=== PATIENT | male | born 1975 | race Two or more races ===

== ENCOUNTER 2023-09-16 09:51 | Emergency (ER) | payer BC ==
[~2023-09-16] VITALS: Ht 182.9 cm; Wt 47.6 kg
[2023-09-16] MEDS ORDERED: GRALISE600 MG (09:56)
[2023-09-16] MEDS ORDERED: LISINOPRIL5 MG (09:56)
[2023-09-16] MEDS ORDERED: PRILOSEC OTC20 MG (09:56)
[2023-09-16] MEDS ORDERED: FAMOtidine 10 MG/ML (4ML VIAL) IV STA (10:36)
[2023-09-16] MEDS ORDERED: RINGERS SOLUTION,LACTATED 1,000 ML IV STA (10:37)
[2023-09-16 11:12] LABS: HEMATOCRIT 40.1 % (39.0-48.0); HEMOGLOBIN 14.1 g/dL (13-16.00); MEAN CELL VOLUME 88.4 fL (80.0-100.00); MEAN CORPUSCULAR HEMOGLOBIN 31.1 pg (27.00-32.0); MEAN CORPUSCULAR HGB CONC 35.2 g/dl (32.0-36.0); PLATELET COUNT 162 K/uL (150-450); RED BLOOD COUNT 4.54 M/uL (4.00-6.00); RED CELL DISTRIBUTION WIDTH 13.1 % (11.5-14.5)
[2023-09-16 11:41] LABS: ALBUMIN 3.2 gm/dL (3.4-5.0); BILIRUBIN TOTAL 0.37 mg/dL (0.3-1.2); BILIRUBIN,CONJUGATED 0.12 mg/dL (0.0-0.2); BILIRUBIN,UNCONJUGATED 0.25 mg/dL (0.0-0.6); CALCIUM 8.7 mg/dL (8.5-10.1); CREATININE SERUM 1.26 mg/dL (0.70-1.30); GFR 60.58; POTASSIUM 4.15 mEq/L (3.5-5.1)
[2023-09-16 13:29] LABS: URINE APPEARANCE Clear; URINE BILIRRUBIN Negative (NEGATIVE); URINE BLOOD Negative; URINE COLOR Yellow; URINE GLUCOSE Negative (NEGATIVE); URINE LEUKOCYTE Negative; URINE NITRATE Negative; URINE PROTEIN Negative (NEGATIVE); URINE UROBILINOGEN 0.2 E.U./dl
[2023-09-16 13:33] LABS: URINE BACTERIA 7.5 uL (0.0-1933)
[2023-09-16 14:12] LABS: URINE EPITHELIAL CELLS 1.3 uL (0.0-38.8); URINE WBC 1.3 uL (0.0-23.2)
== END 2023-09-16 17:29 | disposition home or self-care (01) ==
LOC: ER 09:52
PROVIDERS: General Practice
DX: K64.8 Other hemorrhoids (principal); I10 Essential (primary) hypertension; Z88.0 Allergy status to penicillin